=== PATIENT | male | born 1955 | race Caucasian/White ===

== ENCOUNTER → 2017-04-28 | Outpatient (CLI) | payer OTHER | LOC: FIMAGING 07:11 | DX: N26.1 Atrophy of kidney (terminal) (principal); K76.6 Portal hypertension; R94.5 Abnormal results of liver function studies ==

== ENCOUNTER → 2018-10-15 | Outpatient (CLI) | payer OTHER | LOC: FIMAGING 07:45 | DX: I85.00 Esophageal varices without bleeding (principal); K74.60 Unspecified cirrhosis of liver; R94.5 Abnormal results of liver function studies; R16.1 Splenomegaly, not elsewhere classified ==

== ENCOUNTER → 2018-11-10 | Outpatient (CLI) | payer OTHER ==
[~2018-11-10] MED LIST: GADOBUTROL 10 ML VIAL IVP ONE
== END ==
LOC: FIMAGING 07:27
DX: K76.6 Portal hypertension (principal); I85.00 Esophageal varices without bleeding; R94.5 Abnormal results of liver function studies; K74.60 Unspecified cirrhosis of liver
CPT/HCPCS: 74183; A9585

== ENCOUNTER → 2018-12-22 | Outpatient (CLI) | payer OTHER | LOC: FIMAGING 09:20 | PROVIDERS: ATTEND Allergy & Immunology Allergy | DX: R16.1 Splenomegaly, not elsewhere classified (principal) ==